=== PATIENT | female | born 1960 | race Caucasian/White ===

== ENCOUNTER 2018-06-24 23:13 | Emergency (ER) | payer BC ==
[2018-06-24 23:50] LABS: #Eosinphils 0.1 thou/uL (0.0-0.7); #Lymphocytes 1.9 thou/uL (1.20-3.40); #Monocytes 0.7 thou/uL (0.11-0.59); %Basophils 0.3 % (0.0-1.0); %Eosinophils 0.7 % (0.0-10.0); %Lymphocytes 16.3 % (21.0-51.0); %Monocytes 5.9 % (0.0-10.0); %Neutrophils 76.8 % (42.0-75.0); Hemoglobin 13.1 g/dL (12.0-16.0); Mean Corpuscular HGB CONC 32.5 g/dL (32.0-36.0); Mean Corpuscular Hemoglobin 29.4 pg (27.0-31.0); Mean Corpuscular Volume 90.6 fL (78.0-98.0); Mean Platelet Volume 7.4 fL (7.4-10.4); Platelet Count 232 thou/uL (130-400); RBC Distribution Width 12.2 % (11.5-14.5); Red Blood Cell (RBC) Count 4.46 mill/uL (4.20-5.40); White Blood Cell (WBC) Count 11.7 thou/uL (4.8-10.8)
--- NOTE | 2018-06-24 23:54 | RAD ---
RIGHT FOOT THREE VIEWS: 06/24/18 INDICATION: Right foot wound. COMPARISON: None. FINDINGS: There is a benign appearing region of sclerosis involving the medial aspect of the great toe proximal phalanx. No acute fracture or subluxation is evident. Lisfranc alignment is preserved. IMPRESSION: No acute osseous abnormality. POS: [facility]
[2018-06-24 23:59] LABS: INR-International Normal Ratio 0.9; PTT 26.7 SEC (22.9-36.1); Prothrombin Time 11.7 SEC (12.0-14.7)
[2018-06-25 00:11] LABS: ALT (SGPT) 27 U/L (8-55); AST (SGOT) 23 U/L (5-34); Albumin 3.6 g/dL (3.5-5.0); Alkaline Phosphatase 106 U/L (40-150); Anion Gap 14 mmol/L (10-20); BUN (Urea Nitrogen) 15 mg/dL (9.8-20.1); Bilirubin, Total 0.3 mg/dL (0.2-1.2); Calc. Creatinine Clearance 0 mL/min (70-130); Carbon Dioxide 23 mmol/L (22-29); Chloride 103 mmol/L (98-107); Estimated GFR-MDRD 76; Globulin 2.7 g/dL (2.4-3.5); Glucose 231 mg/dL (70-105); Potassium 3.9 mmol/L (3.5-5.1); Protein, Total 6.3 g/dL (6.0-8.3); Sodium 136 mmol/L (136-145)
[2018-06-25] MEDS ORDERED: Clindamycin/D5W 900 mg/50 ml Premix Bag ONE (00:22)
[2018-06-25] MEDS ORDERED: Piperacillin/Tazobactam 4.5 GM VIAL ONE (00:43)
[2018-06-25] MEDS ORDERED: diphenhydrAMINE 50 MG/ML VIAL ONE (00:58)
[2018-06-25] MEDS ORDERED: Morphine 4 MG/ML VIAL ONE (01:07)
[2018-06-25] MEDS ORDERED: Ondansetron PF 4 MG/2 ML Vial ONE (01:10)
== END 2018-06-25 01:26 | disposition short-term general hospital (02) ==
LOC: ERS 23:13
DX: M72.6 Necrotizing fasciitis (principal); E11.9 Type 2 diabetes mellitus without complications; E78.5 Hyperlipidemia, unspecified; Z87.891 Personal history of nicotine dependence; Z79.84 Long term (current) use of oral hypoglycemic drugs; Z79.899 Other long term (current) drug therapy
CPT/HCPCS: 36415; 80053; 83605; 85025; 85610; 85730; 87040; 96365; 96367; 96368; 96375; J1200; J2270; J2405; J2543; J3370; J3490